=== PATIENT | male | born 1985 | race Caucasian/White ===

== ENCOUNTER 2021-07-31 00:34 | Emergency (ER) | payer OTHER ==
[~2021-07-31] VITALS: Ht 170.2 cm; Wt 88.0 kg
[2021-07-31 00:56] VITALS: BP 117/70
== END 2021-07-31 01:15 | disposition home or self-care (01) | DRG 605 ==
LOC: ED 00:34
PROC: 0HQ4XZZ Repair Neck Skin, External Approach (ICD-10-PCS; principal; 2021-07-31)
DX: S11.91XA Laceration without foreign body of unspecified part of neck, initial encounter (principal); W06.XXXA Fall from bed, initial encounter; Y92.143 Cell of prison as the place of occurrence of the external cause